=== PATIENT | female | born 1990 | race Caucasian/White ===

== ENCOUNTER 2019-11-15 19:35 | Emergency (ER) | payer OTHER ==
[2019-11-15] MEDS ORDERED: Lidocaine 1% PF 5 ML VIAL ONE (21:11)
== END 2019-11-15 21:36 | disposition home or self-care (01) ==
LOC: ERS 19:35
DX: O99.712 Diseases of the skin and subcutaneous tissue complicating pregnancy, second trimester (principal); L05.01 Pilonidal cyst with abscess; Z3A.19 19 weeks gestation of pregnancy
CPT/HCPCS: 10080; J2001